=== PATIENT | male | born 1980 | race Caucasian/White ===

== ENCOUNTER 2021-11-13 16:24 | Emergency (ER) | payer SELFPAY ==
--- NOTE | ~2021-11-13 | XR_ITS ---
EXAM: XR foot RT min 3V HISTORY: INJURY X3 WKS AGO,PAIN 5TH METATARSAL COMPARISON: None available FINDINGS: Normal mineralization. No fracture or dislocation. No lytic or blastic lesion. Joint space s maintained. Achilles and plantar enthesopathy. No erosion or periosteal change. Soft tissues within normal limits. IMPRESSION: No acute osseous finding in the right foot. Reviewed, dictated and finalized at location K.
[2021-11-13 16:25] VITALS: BP 154/93; PULSE 97; RESP 14; TEMP 36.7; O2SAT 99
--- NOTE | 2021-11-13 16:41 | ED.LOWEXIN ---
HPI - Extremity Injury (Lower) General Chief Complaint: Extremity Injury, Lower <Le Caal PA-C - Last Filed: 11/13/21 17:12> Stated Complaint: right foot injury <JUANJO Cooper Last Filed: 11/13/21 17:12> Time Seen by Provider: 11/13/21 16:29 <JUANJO Cooper Last Filed: 11/13/21 17:12> Source: patient <JUANJO Cooper Last Filed: 11/13/21 17:12> Mode of arrival: ambulatory <JUANJO Cooper Last Filed: 11/13/21 17:12> Limitations: no limitations <JUANJO Cooper Last Filed: 11/13/21 17:12> History of Present Illness HPI Narrative: Patient presents to the emergency department for right foot pain ongoing today. Reports that he dropped a tray on the foot at work a couple weeks ago. The pain was not too bad after that. Today he woke up with pain on the plantar surface of the foot. Worse with weightbearing. He took an anti-inflammatory with some relief. Denies fever, erythema, edema, or numbness. <JUANJO Cooper Last Filed: 11/13/21 17:12> Related Data Home Medications: Home Medications Medication Instructions Recorded Confirmed No Home Medications 11/13/21 11/13/21 <JUANJO Cooper Last Filed: 11/13/21 17:12> Allergies/Adverse Reactions: Allergies Allergy/AdvReac Type Severity Reaction Status Date / Time No Known Allergies Allergy Verified 11/13/21 17:04 <JUANJO Cooper Last Filed: 11/13/21 17:12> Review of Systems Review of Systems: CONSTITUTIONAL: Denies fever SKIN: Denies rash MUSCULOSKELETAL: Reports joint pain, and myalgia. NEUROLOGIC: Denies numbness, or weakness. <JUANJO Cooper Last Filed: 11/13/21 17:12> All systems reviewed & are unremarkable except as noted in HPI and below <Le Caal PA-C - Last Filed: 11/13/21 17:12> [facility] Past Medical History Medical History: Medical History (Updated 11/13/21 @ 17:11 by Le Caal PA-C) No active medical problems <Le Caal PA-C - Last Filed: 11/13/21 17:12> Social History Social History: Social History (Updated 11/13/21 @ 16:43 by Le Caal PA-C) Smoking status: Never smoker <Le Caal PA-C - Last Filed: 11/13/21 17:12> Exam Narrative: GENERAL: Well-appearing, well-nourished, and in no acute distress. HEAD: Normocephalic, atraumatic. EXTREMITIES: Normal range of motion. No edema, erythema, or obvious deformity. Normal DP pulses. Normal sensation. Tender to palpation of the plantar fascia SKIN: Warm, dry, no rash. NEURO: No focal deficits. Alert and oriented x3. PSYCH: Normal mood and affect <Le Caal PA-C - Last Filed: 11/13/21 17:12> Course STRATEGIC COMMUNICATIONS SPECIALIST/PA Physician Supervision I did not see this patient nor was the care plan discussed with me, imaging reviewed. I was available for evaluation and consultation, I agree with the documentation <Pillo Tapia MD - Last Filed: 11/13/21 18:11> Vital Signs Vital signs: Vital Signs Temperature 36.7 C 11/13/21 16:25 Pulse Rate 97 11/13/21 16:25 Respiratory Rate 14 11/13/21 16:25 Blood Pressure 154/93 H 11/13/21 16:25 Pulse Oximetry 99 11/13/21 16:25 Temperature 36.7 C 11/13/21 16:25 Pulse Rate 97 11/13/21 16:25 Respiratory Rate 14 11/13/21 16:25 Blood Pressure 154/93 H 11/13/21 16:25 Pulse Oximetry 99 11/13/21 16:25 <Le Caal PA-C - Last Filed: 11/13/21 17:12> Vital Signs Temperature 36.7 C 11/13/21 16:25 Pulse Rate 97 11/13/21 16:25 Respiratory Rate 14 11/13/21 16:25 Blood Pressure 154/93 H 11/13/21 16:25 Pulse Oximetry 99 11/13/21 16:25 Temperature 36.7 C 11/13/21 16:25 Pulse Rate 97 11/13/21 16:25 Respiratory Rate 14 11/13/21 16:25 Blood Pressure 154/93 H 11/13/21 16:25 Pulse Oximetry 99 11/13/21 16:25 <Pillo Tapia MD - Last Filed: 11/13/21 18:11> MDM - Extremity Injury (Lower) MDM Narrati
[2021-11-13] MEDS: ACETAMINOPHEN 500 MG TABLET 1000 MG PO (17:06)
== END 2021-11-13 17:35 | disposition home or self-care (01) ==
PROVIDERS: Emergency Provider Emergency Medicine
DX: M79.671 Pain in right foot (principal); W20.8XXA Other cause of strike by thrown, projected or falling object, initial encounter
CPT/HCPCS: 73630; 99283; A9270